=== PATIENT | female | born 1965 | race Caucasian/White ===

== ENCOUNTER 2019-02-09 08:25 | Outpatient (CLI) | payer BC ==
[2019-02-09] MEDS ORDERED: CT SWABBABLE VALVE TRANS SET 1 EA INFUS.SET MC ONE (09:56)
[2019-02-09] MEDS ORDERED: IOHEXOL-350 100 ML VIAL IV ONE (09:57)
[2019-02-09] MEDS ORDERED: IV NS 0.9% 250 ML IV ONE (09:57)
[2019-02-09] MEDS ORDERED: METOPROLOL TARTRATE INJ 5 MG/5 ML AMPUL ONE ×2 (10:23→11:01)
[2019-02-09] MEDS ORDERED: IV NS 0.9% 500 ML IV ONE (10:45)
== END 2019-02-09 23:59 | disposition home or self-care (01) ==
LOC: CT 08:25
PROVIDERS: ATTEND Internal Medicine
DX: R07.9 Chest pain, unspecified (principal); M47.814 Spondylosis without myelopathy or radiculopathy, thoracic region
CPT/HCPCS: 75574; J3490 ×2; J7040; J7050; Q9967